=== PATIENT | female | born 1985 | race Caucasian/White ===

== ENCOUNTER 2017-04-17 23:14 | Emergency (ER) | payer SELFPAY ==
[2017-04-17 23:20] VITALS: BP 132/78; BMI 49.1
[2017-04-17] MEDS ORDERED: NS 1000 ML 1,000 ML ONE (23:40)
[2017-04-17] MEDS ORDERED: NS 1000 ML 1,000 ML IV ONE (23:41)
[2017-04-17] MEDS ORDERED: TORADOL 30 MG VIAL IVP ONE (23:41)
--- NOTE | 2017-04-17 23:44 | DR.SOBA ---
HPI - Time Seen Time seen: 23:40 - Primary Care Physician Primary Care Physician: nfd - Complaints Chief Complaint Doctors Comments: Patient admits to shortness of breath,muscle aches and pain, nausea for one day. She denies history of cardiopulmonary disease. Chief Complaint:: shortness of breath after showering around 2 hrs ago and light headed. has had cold for 3 days. chest and back pain when i cough and breathe deep. Self Treatment fo Chief Complaint: nyquil at 10 am - Source History Provided: Patient - Mode of Arrival Mode of Arrival: Ambulatory - Timing Onset of Chief Complaint: 04/17/17 PMH - PMH Past Medical History: Yes Past Medical History: Depression Past Surgical History: Yes Past Surgical History Comment: tubaligation - Family History History of Family Medical Conditions: Yes Family Medical History: Cancer - Social History Does patient currently use any type of tobacco product: No Have you used tobacco products in the last 12 months: No Type of Tobacco Use: None Does any household member use tobacco: No Alcohol Use: None Do you use any recreational Drugs:: No Lives With: Mom, Family Lives Where: Home - infectious screening Have you traveled outside the country in the last 6 months?: No Isolation: Standard ROS - Review of Systems Constitutional: Chills, Diaphoresis, Fever, Malaise, Weakness Eyes: No Symptoms Reported ENTM: No Symptoms Reported Respiratoy: No Symptoms Reported Cardiovascular: No Symptoms Reported Gastrointestinal/Abdominal: No Symptoms Reported Genitourinary: No Symptoms Reported Neurological: No Symptoms Reported Musculoskeletal: No Symptoms Reported Integumentary: No Symptoms Reported Hematologic/Lymphatic: No Symptoms Reported Endocrine: No Symptoms Reported Psychiatric: No Symptoms Reported All Other Systems: Reviewed and Negative PE - Vital Signs Vitals: Temperature 97.1 F Pulse Rate 110 Respiratory Rate 16 Blood Pressure 132/78 O2 Sat by Pulse Oximetry 97 - General Limitations: No Limitations General Appearance: Alert, In No Apparent Distress - Head Head Exam: Normal Inspection, Atraumatic - Eyes Eye exam: Normal Appearance, PERRL, EOMI - ENT ENT Exam: Normal Exam, Normal Oropharynx - Neck Neck Exam: Normal Inspection, Full ROM - Chest Chest Inspection: Normal Inspection - Respiratory Respiratory Exam: Normal Lung Sounds Bilat Respiratory Exam: Bilateral Clear to Auscultation - Cardiovascular Cardiovascular Exam: Regular Rate, Normal Rhythm - Abdominal Exam Abdominal Exam: Normal Inspection, Normal Bowel Sounds Abdominal Tenderness: RUQ, RLQ, LUQ, LLQ - Extremities Extremities Exam: Normal Inspection, Full ROM - Back Back Exam: Normal Inspection, Full ROM - Neurologic Neurological Exam: Alert, Oriented X3, CN II-XII Intact - Psychiatric Psychiatric Exam: Normal Affect, Normal Mood - Skin Skin Exam: Warm, Dry, Intact ROR - Labs Reviewed Laboratory Results Reviewed?: Yes (Influenza A positive) Result Diagrams: 04/17/17 23:42 04/17/17 23:42 Laboratory: WBC 7.2 X10^3/uL (3.6-10.0) 04/17/17 23:42 RBC 4.57 X10^6/uL (3.5-5.4) 04/17/17 23:42 Hgb 13.5 g/dL (12.0-16.0) 04/17/17 23:42 Hct 39.5 % (36.0-47.0) 04/17/17 23:42 MCV 86.3 fL (80.0-100.0) 04/17/17 23:42 MCH 29.5 pg (27.0-34.0) 04/17/17 23:42 MCHC 34.2 g/dL (33.0-35.0) 04/17/17 23:42 RDW 12.7 % (11.6-16.5) 04/17/17 23:42 Plt Count 261 X10^3/uL (150.0-450.0) 04/17/17 23:42 MPV 8.0 fL (7.4-11.0) 04/17/17 23:42 Neut % 66.9 % (42.0-75.0) 04/17/17 23:42 Lymph % 20.5 % (21.0-51.0) L 04/17/17 23:42 Sequoyah % 9.5 % (0.0-13.0) 04/17/17 23:42 Eos % 2.4 % (0.9-2.9) 04/17/17 23:42 Baso % 0.7 % (0.2-1.0) 04/17/17 23:42 Neut # 4.8 x10^3/uL (2.2-4.8) 04/17/17 23:42 Lymph # 1.5 X10^3/uL (1.3-2.9) 04/17/17 23:42 Sequoyah # 0.7 x10^3/uL (0.3-0.8) 04/17/17 23:42 Eos # 0.2 x10^3/uL (0.0-0.2) 04/17/17 23:42 Baso # 0.0 X10^3/uL (0.0-0.1) 04/17/17 23:42 Absolute Nucleated RBC 0.2 /100WBC 04/17/17 23:42 Sodium 142 mmol/L (136-145) 04/17/17 23:42 Corrected Sodium TNP 04/17/17 23:42 Potassium 3.7 mmol/L (3.5-5.1) 04/17/17 23:42 Chloride 107 mmol/L (98-107) 04/17/17 23:42 Carbon Dioxide 21.4 mmol/L (21-32) 04/17/17 23:42 BUN 6 mg/dL (7-18) L 04/17/17 23:42 Creatinine 0.51 mg/dL (0.55-1.02) L 04/17/17 23:42 Est GFR (MDRD) Af Amer > 60 (>60) 04/17/17 23:42 Est GFR (MDRD) Non-Af > 60 (>60) 04/17/17 23:42 Glucose 98 mg/dL (65-99) 04/17/17 23:42 Calcium 8.7 mg/dL (8.5-10.1) 04/17/17 23:42 Influenza Type A (PCR) Positive (NEGATIVE) A 04/17/17 23:42 Influenza Type B (PCR) Negative (NEGATIVE) 04/17/17 23:42 - Diagnosis Discharge Problem: Influenza A - Discharge Plan Condition: Stable - Follow ups/Referrals Follow ups/Referrals: NFD,None [Primary Care Provider] - 3 days - Instructions
[2017-04-17] MEDS ORDERED: TORADOL 30 MG VIAL ONE (23:49)
[2017-04-18] LABS: BASOPHILS % (AUTO) 0.7 % (0.2-1.0); EOSINOPHILS # (AUTO) 0.2 x10^3/uL (0.0-0.2); EOSINOPHILS % (AUTO) 2.4 % (0.9-2.9); HEMATOCRIT 39.5 % (36.0-47.0); HEMOGLOBIN 13.5 g/dL (12.0-16.0); LYMPHOCYTES # (AUTO) 1.5 X10^3/uL (1.3-2.9); LYMPHOCYTES % (AUTO) 20.5 % (21.0-51.0); MEAN CORPUSCULAR HEMOGLOBIN 29.5 pg (27.0-34.0); MEAN CORPUSCULAR HGB CONC 34.2 g/dL (33.0-35.0); MEAN CORPUSCULAR VOLUME 86.3 fL (80.0-100.0); MONOCYTES # (AUTO) 0.7 x10^3/uL (0.3-0.8); MONOCYTES % (AUTO) 9.5 % (0.0-13.0); NEUTROPHILS # (AUTO) 4.8 x10^3/uL (2.2-4.8); NEUTROPHILS % (AUTO) 66.9 % (42.0-75.0); PLATELET COUNT 261 X10^3/uL (150.0-450.0); RED BLOOD COUNT 4.57 X10^6/uL (3.5-5.4); RED CELL DISTRIBUTION WIDTH 12.7 % (11.6-16.5); WHITE BLOOD COUNT 7.2 X10^3/uL (3.6-10.0)
[2017-04-18 00:05] LABS: BLOOD UREA NITROGEN 6 mg/dL (7-18); CALCIUM 8.7 mg/dL (8.5-10.1); CARBON DIOXIDE 21.4 mmol/L (21-32); CHLORIDE 107 mmol/L (98-107); CREATININE 0.51 mg/dL (0.55-1.02); SODIUM 142 mmol/L (136-145); eGFR BLACK RACES > 60 (>60); eGFR NON BLACK RACES > 60 (>60)
== END 2017-04-18 00:49 | disposition home or self-care (01) ==
LOC: ER 23:14
DX: J11.1 Influenza due to unidentified influenza virus with other respiratory manifestations (principal)
CPT/HCPCS: 36415; 80048; 85025; 87502; 96365; 96367; 96374; 99282; 99283; A4222; J1885